=== PATIENT | female | born 1975 | race Two or more races ===

== ENCOUNTER 2017-02-06 08:39 | Emergency (ER) | payer MEDICAID ==
[~2017-02-06] VITALS: Ht 157.5 cm; Wt 78.5 kg
[2017-02-06 08:41] VITALS: Ht 157.5 cm; Wt 78.5 kg
[2017-02-06] MEDS ORDERED: ACETAMINOPHEN 500 MG TAB PO STA (09:14)
[2017-02-06] MEDS ORDERED: SOD CHLORIDE 0.9% 2,430 ML IV ONE (09:30)
[2017-02-06] MEDS ORDERED: LORAZEPAM 2 MG INJ IV ONE (09:30)
[2017-02-06] MEDS ORDERED: IBUPROFEN 600 MG TAB PO ONE (09:30)
--- NOTE | 2017-02-06 09:46 | RADRPT ---
PROCEDURE: XR Chest. CLINICAL INDICATION: chest pain, cough TECHNIQUE: Single frontal view of the chest was obtained COMPARISON: None FINDINGS: The heart and mediastinum are within normal limits. The lungs are clear. There is no pleural effusion or pneumothorax. RPTAT: AA IMPRESSION: No acute disease. .Kolby Burns MD, MD Date Time Electronically viewed and signed by .Kolby Burns MD, on 02/06/2017 09:45 .S/
[2017-02-06 09:47] LABS: BASOPHILS % 0.3 % (0.0-2.0); EOSINOPHILS % 0.1 % (0.0-7.0); HEMATOCRIT 40.2 % (37.0-47.0); HEMOGLOBIN 13.5 g/dl (12.0-16.0); LYMPHOCYTES # 0.8 10^3/ul (0.8-2.9); LYMPHOCYTES % 7.3 % (15.0-51.0); MEAN CORPUSCULAR HEMOGLOBIN 29.1 pg (29.0-33.0); MEAN CORPUSCULAR HGB CONC 33.6 g/dl (32.0-37.0); MEAN CORPUSCULAR VOLUME 86.6 fl (82.0-101.0); MEAN PLATELET VOLUME 11.2 fl (7.4-10.4); MONOCYTE # 0.5 10^3/ul (0.3-0.9); MONOCYTES % 4.6 % (0.0-11.0); NEUTROPHIL # 9.9 10^3/ul (1.6-7.5); NEUTROPHILS % 87.3 % (39.0-77.0); PLATELET COUNT 244 10^3/UL (140-415); RED BLOOD COUNT 4.64 10^6/ul (4.20-5.40); WHITE BLOOD COUNT 11.3 10^3/ul (4.8-10.8)
[2017-02-06 10:00] LABS: ADD UMIC YES; UR ASCORBIC ACID NEGATIVE (NEGATIVE); UR BILIRUBIN (Dip) NEGATIVE (NEGATIVE); UR BLOOD (Dip) 1+ mg/dL (NEGATIVE); UR CLARITY CLEAR (CLEAR); UR COLOR STRAW (YELLOW); UR GLUCOSE (Dip) NEGATIVE (NEGATIVE); UR KETONES (Dip) NEGATIVE (NEGATIVE); UR LEUKOCYTE ESTERASE (Dip) NEGATIVE Leu/ul (NEGATIVE); UR NITRITE (Dip) NEGATIVE (NEGATIVE); UR RBC 1 /HPF (0-5); UR SPECIFIC GRAVITY (Dip) 1.006 (1.003-1.030); UR TOTAL PROTEIN (Dip) NEGATIVE (NEGATIVE); UR UROBILINOGEN (Dip) NEGATIVE (NEGATIVE)
[2017-02-06 10:03] LABS: ALBUMIN 4.4 g/dl (3.3-4.9); ALBUMIN/GLOBULIN RATIO 1.02; BILIRUBIN,INDIRECT 0.4 mg/dl (0-1.1); BILIRUBIN,TOTAL 0.4 mg/dl (0.2-1.3); CALCIUM 9.8 mg/dl (8.4-10.2); CREATININE 0.8 mg/dl (0.44-1.00); POTASSIUM 3.8 mmol/L (3.5-5.1); TOTAL PROTEIN 8.7 g/dl (6.1-8.1)
[2017-02-06] MEDS ORDERED: IBUP-1542 PO (11:27)
[2017-02-06] MEDS ORDERED: PENICILLIN G BENZ 1.2 MIL UNIT SYG IM ONE (11:30)
[2017-02-06 11:50] VITALS: BP 101/68; PULSE 75; RESP 18; TEMP 98.5
--- NOTE | 2017-02-06 18:01 | ERD ---
ER Documentation Chief Complaint Chief Complaint COUGHING; SOB; BODY ACHES; HEADACHE; FEVER HPI 42-year-old female patient with no significant past medical history presents to the ED complaining of shortness of breath, body aches, sore throat, headache, fever intermittently for the past 8 days. States that she coughs to clear her throat however does not truly have a cough. Denies any chest pain, wheezing, shortness of breath, abdominal pain, nausea, vomiting, diarrhea. Denies any sick contacts. Denies any odynophagia, dysphagia. ROS All systems reviewed and are negative except as per history of present illness. Medications Home Meds Active Scripts Ibuprofen* (Motrin*) 600 Mg Tab, 600 MG PO Q6, #30 TAB Prov:EVERTON HOWARD PA-C 02/06/17 PMhx/Soc Medical and Surgical Hx: pt denies Medical Hx, pt denies Surgical Hx Hx Alcohol Use: No Hx Substance Use: No Hx Tobacco Use: No Smoking Status: Former smoker Physical Exam Vitals Vital Signs Date Time Temp Pulse Resp B/P Pulse Ox O2 Delivery O2 Flow Rate FiO2 02/06/17 11:50 98.5 75 18 101/68 98 Room Air 02/06/17 10:19 Nasal Cannula 02/06/17 08:41 102.3 102 28 150/84 100 Physical Exam Const: [id number], well-nourished. In no acute distress. Head: Atraumatic, normocephalic Eyes: Normal Conjunctiva without injection. No purulent discharge. PERRL. EOMI ENT: Normal external ear. Ear canal without erythema. Tympanic membrane pearly bledsoe without effusion or bulging. Nasal canal clear with normal turbinates. Moist oropharynx without tonsillar exudates. Non-erythematous pharynx. Uvula midline. No drooling. No trismus. Neck: Full range of motion. No meningismus. No cervical lymphadenopathy. Resp: Clear to auscultation bilaterally. No wheezing, rhonchi, rales, or crackles. No accessory muscle use. No retractions. Cardio: Regular rate and rhythm. No murmurs, rubs or gallops. Abd: Soft, non tender, non distended. Normal bowel sounds. No palpable masses. No rebound tenderness. No guarding. Skin: No petechiae or rashes Back: No midline tenderness. No CVA tenderness. Ext: No cyanosis, or edema. Neur: Awake and alert. Psych: Normal Mood and Affect Results 24 hrs Laboratory Tests Test 02/06/17 09:30 02/06/17 09:35 White Blood Count 11.310^3/ul Red Blood Count 4.6410^6/ul Hemoglobin 13.5g/dl Hematocrit 40.2% Mean Corpuscular Volume 86.6fl Mean Corpuscular Hemoglobin 29.1pg Mean Corpuscular Hemoglobin Concent 33.6g/dl Red Cell Distribution Width 13.0% Platelet Count 66044^3/UL Mean Platelet Volume 11.2fl Neutrophils % 87.3% Lymphocytes % 7.3% Monocytes % 4.6% Eosinophils % 0.1% Basophils % 0.3% Nucleated Red Blood Cells % 0.0/100WBC Neutrophils # 9.910^3/ul Lymphocytes # 0.810^3/ul Monocytes # 0.510^3/ul Eosinophils # 0.010^3/ul Basophils # 0.010^3/ul Nucleated Red Blood Cells # 0.010^3/ul Sodium Level 137mmol/L Potassium Level 3.8mmol/L Chloride Level 105mmol/L Carbon Dioxide Level 24mmol/L Anion Gap 12 Blood Urea Nitrogen 10mg/dl Creatinine 0.80mg/dl Glucose Level 88mg/dl Calcium Level 9.8mg/dl Total Bilirubin 0.4mg/dl Direct Bilirubin 0.00mg/dl Indirect Bilirubin 0.4mg/dl Aspartate Amino Transf (AST/SGOT) 17IU/L Alanine Aminotransferase (ALT/SGPT) 31IU/L Alkaline Phosphatase 83IU/L Total Protein 8.7g/dl Albumin 4.4g/dl Globulin 4.30g/dl Albumin/Globulin Ratio 1.02 Urine Color STRAW Urine Clarity CLEAR Urine pH 8.0 Urine Specific Tucker 1.006 Urine Ketones NEGATIVEmg/dL Urine Nitrite NEGATIVEmg/dL Urine Bilirubin NEGATIVEmg/dL Urine Urobilinogen NEGATIVEmg/dL Urine Leukocyte Esterase NEGATIVELeu/ul Urine Microscopic RBC 1/HPF Urine Microscopic WBC 1/HPF Urine Hemoglobin 1+mg/dL Urine Glucose NEGATIVEmg/dL Urine Total Protein NEGATIVEmg/dl Current Medications Medications (Trade) Dose Ordered Sig/Margarito Route PRN Reason Start Time Stop Time Status Last Admin Dose Admin Sodium Chloride (NS) 2,430 ml @ 2,430 mls/hr BOLUS X1 ONCE IV 02/06/17 09:30 02/06/17 10:29 DC 02/06/17 10:07 Ibuprofen (Motrin) 600 mg ONCE ONCE PO 02/06/17 09:30 02/06/17 09:31 DC 02/06/17 10:07 Acetaminophen (Tylenol Tab) 500 mg ONCE STAT PO 02/06/17 09:14 02/06/17 09:22 DC 02/06/17 10:07 Lorazepam (Ativan) 1 mg ONCE ONCE IV 02/06/17 09:30 02/06/17 09:31 DC 02/06/17 10:07 Penicillin G Benzathine (Bicillin La) 1,200,000 units ONCE ONCE IM 02/06/17 11:30 02/06/17 11:31 DC 02/06/17 11:40 Procedures/MDM This is a 42-year-old female patient with no significant past medical history presents to the ED complaining of sore throat, body aches, headache, fever. Patient is febrile at 102.3. Patient is tachycardic at 102. Patient was given 30 mL/kg normal saline. Patient was treated here in the ED with Ibuprofen and Tylenol with improvement of her symptoms. A CBC, CMP, lipase, chest x-ray, influenza, rapid strep test was ordered to further evaluate patient. Influenza was negative. CBC: No leukocytosis. No e/o of systemic infection. No e/o anemia. CMP: No e/o severe acidosis, alkalosis, renal failure, diabetic ketoacidosis, liver disease Lipase within normal limits. Urine: No leukocyte esterase, no nitrites, no hematuria. Influenza negative PROCEDURE: XR Chest. CLINICAL INDICATION: chest pain, cough TECHNIQUE: Single frontal view of the chest was obtained COMPARISON: None FINDINGS: The heart and mediastinum are within normal limits. The lungs are clear. There is no pleural effusion or pneumothorax. RPTAT: AA IMPRESSION: No acute disease. Patient has a positive rapid strep test noted here in the ED. Patient was treated here in the ED with Penicillin G 1.2 units IM. Patient's physical exam include lungs which were clear to auscultation and a normal pulse oximetry. Bilateral ears pearly chávez. No tenderness to palpation of tragus or mastoid. Low suspicion for mastoiditis, otitis externa, otitis media. Patient is speaking in full sentences. There is a low suspicion for pneumonia, epiglottitis , croup, sinusitis, peritonsillar abscess, hands foot mouth disease, scarlet fever, Kawasaki disease, retropharyngeal abscess, meningitis, sepsis, acute abdomen or other emergent conditions. Discharge medications: Ibuprofen Follow up with primary care physician in 1-2 days. Instructed patient to return to the ED sooner for any worsening symptoms. Patient's questions were answered. Patient understood and agreed with discharge plan. Patient discharged stable. Departure Diagnosis: Primary Impression: Strep pharyngitis Condition: Stable Patient Instructions: Pharyngitis, Strep (Confirmed) Referrals: REPLACED BY [facility] YOU HAVE RECEIVED A MEDICAL SCREENING EXAM AND THE RESULTS INDICATE THAT YOU DO NOT HAVE A CONDITION THAT REQUIRES URGENT TREATMENT IN THE EMERGENCY DEPARTMENT. FURTHER EVALUATION AND TREATMENT OF YOUR CONDITION CAN WAIT UNTIL YOU ARE SEEN IN YOUR DOCTORS OFFICE WITHIN THE NEXT 1-2 DAYS. IT IS YOUR RESPONSIBILITY TO MAKE AN APPOINTMENT FOR FOLOW-UP CARE. IF YOU HAVE A PRIMARY DOCTOR --you should call your primary doctor and schedule an appointment IF YOU DO NOT HAVE A PRIMARY DOCTOR YOU CAN CALL OUR PHYSICIAN REFERRAL HOTLINE AT IF YOU CAN NOT AFFORD TO SEE A PHYSICIAN YOU CAN CHOSE FROM THE FOLLOWING [facility] [address] [facility]. [facility] [address] [facility] [facility] [address] [facility] [facility] [address] [facility] [facility] [address] [facility]. [facility]. [address] [facility]. [facility] YOU HAVE RECEIVED A MEDICAL SCREENING EXAM AND THE RESULTS INDICATE THAT YOU DO NOT HAVE A CONDITION THAT REQUIRES URGENT TREATMENT IN THE EMERGENCY DEPARTMENT. FURTHER EVALUATION AND TREATMENT OF YOUR CONDITION CAN WAIT UNTIL YOU ARE SEEN IN YOUR DOCTORS OFFICE WITHIN THE NEXT 1-2 DAYS. IT IS YOUR RESPONSIBILITY TO MAKE AN APPOINTMENT FOR FOLOW-UP CARE. IF YOU HAVE A PRIMARY DOCTOR --you should call your primary doctor and schedule and appointment IF YOU DO NOT HAVE A PRIMARY DOCTOR YOU CAN CALL OUR PHYSICIAN REFERRAL HOTLINE AT . IF YOU CAN NOT AFFORD TO SEE A PHYSICIAN YOU CAN CHOSE FROM THE FOLLOWING [facility] INSTITUTIONS: [facility] [address] [place] [address] [facility] [address] [place] [address] [facility] [address] [place] [address] [facility] URGENT CARE/SPECIALTIES Additional Instructions: Llame al doctor MAANA y martin hanh MISHEL PARA DENTRO DE 2-3 [place].Dgale a la secretaria que nosotros le instruimos hacer esta mishle.Avise o llame si hernandez condicin se empeora antes de la mishel. Regresa aqui si peor o no mejor. EVERTON HOWARD PA-C Feb 06, 2017 18:01 condicin se empeora antes de la mishel. Regresa aqui si peor o no mejor. EVERTON HOWARD PA-C Feb 06, 2017 18:01
== END 2017-02-06 11:52 | disposition home or self-care (01) ==
LOC: FTE 08:39
DX: J02.0 Streptococcal pharyngitis (principal); Z87.891 Personal history of nicotine dependence
CPT/HCPCS: 36415; 71010; 80053; 81001; 85025; 87070; 87400; 87880; 96372; 96374; J0561; J2060; J7030; Z7502; Z7610